=== PATIENT | female | born 1985 | race Caucasian/White ===

== ENCOUNTER 2018-04-10 11:25 | Emergency (ER) | payer OTHER ==
[~2018-04-10] VITALS: Ht 167.6 cm; Wt 67.1 kg
[2018-04-10] MEDS ORDERED: ATIVAN1 MG PO (13:38)
[2018-04-10 13:59] VITALS: BP 114/80
== END 2018-04-10 13:59 | disposition home or self-care (01) ==
LOC: M.ERS 11:25
DX: F43.0 Acute stress reaction (principal); Z88.6 Allergy status to analgesic agent